=== PATIENT | female | born 1985 | race Caucasian/White ===

== ENCOUNTER → 2018-06-10 | Outpatient (CLI) | payer BC ==
--- NOTE | 2018-06-10 11:42 | US ---
EXAMINATION TYPE: US OB <= 14 wk twins DATE OF EXAM: 06/10/2018 COMPARISON: NONE CLINICAL HISTORY: O46.91 Antepartum hemorrhage,O30.91 Multiple gesta. Spotting. IVF. EXAM PERFORMED: Transabdominal (TA) EXAM MEASUREMENTS: GESTATIONAL AGE / DATING Dates by LMP: (12 weeks/5 days) EDC: 12/18/2018 Dates by Current Scan for Baby A: (13 weeks/1 days) EDC: 12/15/2018 Dates by Current Scan for Baby B: (13 weeks/4 days) EDC: 12/12/2018 MATERNAL ANATOMY Uterus: 14.2 x 11.4 x 7.1 cm Right Ovary: 3.3 x 1.7 x 1.8 cm Left Ovary: 3.3 x 1.2 x 1.1 cm Post CDS / Adnexa: no free fluid Presence of free fluid: no Presence of corpus luteal cyst: no Presence of subchorionic bleed: no Presence of two separate gestational sacs: yes GESTATION / SURVEY TWIN A CRL: 6.9 cm (13wks/1days) MSD: seen, not measured Yolk Sac (normal less than 6mm): not visualized Heart Rate: 149 bpm Rhythm: Normal IUP: Viable IUP TWIN B CRL: 7.4 cm (13wks/4days) MSD: seen, not measured Yolk Sac (normal less than 6mm): not visualized Heart Rate: 159 bpm Rhythm: Normal IUP: Viable IUP Date of LMP: 03/13/2018 Beta HcG (if available): Not available at this time Live twin IUP . Baby A position in maternal right. Baby B position is maternal left. Inte rtwin membrane visualized. Baby A measuring 13 weeks 1 day. Baby B measuring 13 weeks 4 days Twin live intrauterine gestation is confirmed dichorionic diamniotic in appearance. No free fluid is seen in pelvic cul-de-sac. Both ovaries are identified. No suspicious adnexal lesions are seen. IMPRESSION: As above, twin live intrauterine gestation noted.
== END | disposition home or self-care (01) ==
LOC: RADUSWWP 10:57
PROVIDERS: ATTEND Obstetrics & Gynecology
DX: O30.001 Twin pregnancy, unspecified number of placenta and unspecified number of amniotic sacs, first trimester (principal); O46.91 Antepartum hemorrhage, unspecified, first trimester; Z3A.13 13 weeks gestation of pregnancy
CPT/HCPCS: 76801; 76802